=== PATIENT | female | born 1990 | race Caucasian/White ===

== ENCOUNTER 2017-10-03 02:40 | Inpatient (IN) | payer OTHER ==
[~2017-10-03] VITALS: Ht 175.3 cm; Wt 90.7 kg
[2017-10-03 02:40] VITALS: BP 140/90
--- NOTE | 2017-10-03 02:50 | NUR ---
27/F BIBA C/O SUICIDAL IDEATION, LACERATION TO BL WRISTS. NO PMH, NKA. PER EMS PT WAS AT A FRIENDS HOUSE AND ATTEMPTED SUICIDE WITH BL WRIST LACERATION IN THE TUB AND BY DRINKING BLEACH. [place] [employer] PRESENT, PLACED PT 5150 HOLD. PT IS AA&O X4, ERATIC, EXCESSIVE SPEECH BUT COOPERATIVE. FOLLOWS COMMANDS. RIGHT WRIST FULL THICKNESS LACERATION, LEFT WRIST HAS MULTIPLE LACERATIONS OF PARTIAL THICKNESS, NO ACTIVE BLEEDING NOTED AT THIS TIME. PT IS IN ER BED ALL BELONGINGS REMOVED AND GIVEN TO SECURITY, ER MD NOTIFIED OF PT STATUS.
--- NOTE | 2017-10-03 02:52 | NUR ---
PT BIB AMBULANCE TO ER BED 06
--- NOTE | 2017-10-03 02:52 | NUR ---
[place] [employer] AT BEDSIDE
[2017-10-03] MEDS ORDERED: LORazepam 2 MG/ML VIAL IM ONE (03:10)
[2017-10-03 03:11] LABS: PLATELET COUNT (AUTO) 300 K/uL (140-450)
[2017-10-03 03:14] LABS: HEMATOCRIT 48.5 % (36-48); HEMOGLOBIN 16.4 g/dL (12.0-16.0); MEAN CORPUSCULAR HEMOGLOBIN 31 pg (27-31); MEAN CORPUSCULAR HGB CONC 34 g/dL (33-37); MEAN CORPUSCULAR VOLUME 91 fL (80-94); RED BLOOD CELL COUNT(AUTO) 5.31 MIL/uL (4.20-5.40); RED CELL DISTRIBUTION WIDTH 12.2 % (11.6-13.7)
--- NOTE | 2017-10-03 03:16 | NUR ---
MOTHER WAS AT BEDSIDE. PHONE # RECEIVED. I ADVISED THE MOTHER WE WOULD UPDATE HER WITH A STATUS ONCE WE HAVE AN UPDATE. MOTHER VERBALIZED UNDERSTANDING. BLAS STEEN [phone]
[2017-10-03 03:19] LABS: WHITE BLOOD COUNT (AUTO) 15.3 K/uL (4.8-10.8)
[2017-10-03 03:20] LABS: ANION GAP 13.9 (8-16); CARBON DIOXIDE 25.7 mmol/L (21-32); CHLORIDE 101 mmol/L (98-107); CREATININE 0.8 mg/dL (0.6-1.3); GFR ARICAN-AMERICAN 112 mL/min (>90); GLUCOSE 121 mg/dL (74-106); LYMPHOCYTES % (MANUAL) 3 % (20-46); MONOCYTES % (MANUAL) 1 % (5-12); POTASSIUM 3.6 mmol/L (3.5-5.1); SODIUM SERUM 137 mmol/L (136-145); UREA NITROGEN, BLOOD 8 mg/dL (7-18)
[2017-10-03 03:26] LABS: ACETAMINOPHEN < 0.5 ug/ml (10-30); ALBUMIN 4.3 g/dL (3.4-5.0); ASPARTATE AMINOTRANSFERASE 18 U/L (15-37); SALICYLATE 4.6 mg/dL (2.8-20.0); TOTAL BILIRUBIN 0.8 mg/dL (0.0-1.0)
[2017-10-03 03:39] LABS: BARBITURATE, URINE NEG. ng/ml (NEG <=200); BENZODIAZEPINE, URINE NEG. ng/mL (NEG <=200); CANNABINOID, URINE POS. ng/mL (NEG <=50); COCAINE, URINE NEG. ng/mL (NEG <=300); OPIATE, URINE NEG. ng/mL (NEG <=2000); PHENCYCLIDINE SCREEN,URINE NEG. ng/mL (NEG <=25)
--- NOTE | 2017-10-03 04:00 | NUR ---
PT IN BED SLEEPING, WILL CONTINUE TO MONITOR.
--- NOTE | 2017-10-03 04:37 | NUR ---
POISON CONTROL CALLED TO REPORT PT'S INGESTION OF HOUSE'S BLEACH, PER POISON COMPUTER ANALYST WANG, IF PT'S DOES NOT SHOW ANY VOMITING OR MOUTH OR THROAT IRRITATION TO JUST KEEP AN CLOSE MONITORING ON PT. SOCIAL WELFARE ADMINISTRATOR TAY PEREZ. IF ANY TRAUMA TO ESOPHAGUS SUSPECTED BY ER MD, GI CONSULT MAY BE NEEDED. PT LATEST VS GIVEN TO TECH OVER THE PHONE. ER MD MADE AWARE OF POISON CONTROL RECOMENDATIONS. PRIMARY CARE NURSE NOTIFIED AT BEDSIDE.
--- NOTE | 2017-10-03 04:51 | NUR ---
PT ABLE TO TOLERATE WATER PO WITH NO COMPLICATIONS. DR. TETO HALL.
--- NOTE | 2017-10-03 05:00 | NUR ---
PT IN BED RESTING, COMFORT NEEDS MET, WILL CONTINUE TO MONITOR.
--- NOTE | 2017-10-03 06:30 | NUR ---
PT IN BED SLEEPING, EASILY AROUSABLE, WILL CONTINUE TO MONITOR.
--- NOTE | 2017-10-03 07:12 | NUR ---
report given to eulogio oneill, transfer of care at this time.
--- NOTE | 2017-10-03 07:15 | NUR ---
PT APPEARS TO BE SLEEPING COMFORTABLY IN BED; RR EVEN/UNLABORED; POSITIONED FOR COMFORT; NO POTENTIALLY HARMFUL OBJECTS IN PT'S ROOM AT THIS TIME; SITTER AT BEDSIDE; WILL CONTINUE TO MONITOR.
--- NOTE | 2017-10-03 08:10 | NUR ---
Pt resing with eyes closed in [place]; Nad; RR are even and unlabored; sucidial precautions in place; sitter by bedside
--- NOTE | 2017-10-03 08:50 | NUR ---
Pt on bsc; pt returned to [facility] without incident; will continue to [facility]; sitter by bedside; suicidial precautions
--- NOTE | 2017-10-03 09:10 | NUR ---
Pt resing with eyes closed in [place]; Nad; RR are even and unlabored; sucidial precautions in place; sitter by bedside
--- NOTE | 2017-10-03 10:09 | NUR ---
Pt resing with eyes closed in [place]; Nad; RR are even and unlabored; sucidial precautions in place; sitter by bedside
--- NOTE | 2017-10-03 11:15 | NUR ---
[place]; Nad; RR are even and unlabored; sucidial precautions in place; sitter by bedside
--- NOTE | 2017-10-03 11:39 | NUR ---
BLAS STEEN, mother of pt, by bedside.
[2017-10-03] MEDS ORDERED: ONDANSETRON 4 MG/2 ML VIAL IVP PRN (12:10)
[2017-10-03] MEDS ORDERED: HYDROcodone/APAP 5/325 MG 1 TAB TAB PO PRN (12:10)
[2017-10-03] MEDS ORDERED: ACETAMINOPHEN 325 MG TAB PO PRN (12:10)
--- NOTE | 2017-10-03 12:19 | NUR ---
Patient will be admitted to [facility]. Admited to Med Surg. Will go to room 109b. Belongings list completed. Report to Jesi MANSFIELD.
--- NOTE | 2017-10-03 12:26 | NUR ---
RECEIVED REPORT FROM ER NURSE. WILL GET ROOM READY. PT WILL GO TO ROOM 109B
--- NOTE | 2017-10-03 15:00 | NUR ---
PT SLEEPING IN BED RIGHT NOW. SITTER AT BEDSIDE NO SIGNS OF DISTRESS
[2017-10-03 16:00] VITALS: BP 107/63
[2017-10-03] MEDS ORDERED: ACET-2619 PO (16:04)
--- NOTE | 2017-10-03 18:45 | NUR ---
PT MOM AND FRIEND AT BEDSIDE. PT YELLED AT ME FOR TYPING IN ROOM. LEFT ROOM. SITTER AT BEDSIDE. ADMINISTERED NICOTINE PATCH. MOM WAS STATING PT NEEDS IT. GAVE PATCH TO PT AND SHE PLACED IT ON LEFT ARM.
[2017-10-03] MEDS: LORazepam 2 MG/ML VIAL IVP PRN (18:53)
[2017-10-03] MEDS: NICOTINE TRANSD SYS 21 MG/24 HR PATCH TD SCH (19:06)
--- NOTE | 2017-10-03 19:25 | NUR ---
ENDORSED PT TO ADMITTING OFFICER NURSE AT BEDSIDE. PT MOM AND FRIEND AT BEDSIDE. SITTER IN ROOM. PT IS IN EMOTIONAL DISTRESS BUT IN STABLE CONDITION.
--- NOTE | 2017-10-03 19:26 | NUR ---
RECEIVED REPORT FROM DAY SHIFT RN AT PT BEDSIDE FOR CONTINUITY OF CARE. PT IS A/OX4, ON ROOM AIR, PT IS AGITATED, YELLING, AND CRYING. PT HAS A NEW LEFT FOREARM IV 22G SALINE LOCKED PUT IN BY CHARGE NURSE. IV TO RIGHT AC REMOVED. PT HAS BILATERAL WRIST LACERATIONS COVERED DRY AND INTACT. SAFETY PRECAUTIONS IN PLACE. SITTER IN ROOM. UPDATED BOARD. DISCUSSED PLAN OF CARE WITH PT, PT VERBALIZED UNDERSTANDING. VITAL SIGNS WITHIN NORMAL LIMITS. PT IN STABLE CONDITION, NO SIGNS OF DISTRESS NOTED. BED IN LOW POSITION, CALL LIGHT WITHIN REACH. WILL CONTINUE TO MONITOR.
[2017-10-04] VITALS: BP 115/63
--- NOTE | 2017-10-04 00:05 | NUR ---
PT SLEEPING, EASILY AWAKEN. VITAL SIGNS WNL. SITTER AT BEDSIDE. PT IN STABLE CONDITION, NO SIGNS OF DISTRESS NOTED. BED IN LOW POSITION, CALL LIGHT WITHIN REACH. WILL CONTINUE TO MONITOR.
[2017-10-04 05:29] LABS: HEMATOCRIT 46.1 % (36-48); HEMOGLOBIN 15.4 g/dL (12.0-16.0); MEAN CORPUSCULAR HEMOGLOBIN 31 pg (27-31); MEAN CORPUSCULAR HGB CONC 33 g/dL (33-37); MEAN CORPUSCULAR VOLUME 92 fL (80-94); PLATELET COUNT (AUTO) 242 K/uL (140-450); RED BLOOD CELL COUNT(AUTO) 5.01 MIL/uL (4.20-5.40); RED CELL DISTRIBUTION WIDTH 12.3 % (11.6-13.7); WHITE BLOOD COUNT (AUTO) 9.5 K/uL (4.8-10.8)
[2017-10-04 05:59] LABS: EOSINOPHILS % (MANUAL) 2 % (0-4); LYMPHOCYTES % (MANUAL) 31 % (20-46); MONOCYTES % (MANUAL) 8 % (5-12)
--- NOTE | 2017-10-04 07:00 | NUR ---
PATIENT HAS BEEN SCREENED AND CATEGORIZED LOW NUTRITION RISK. PATIENT WILL BE SEEN WITHIN 7 DAYS OF ADMISSION. 10/10/17 ROBERTO LOPEZ MS, RDN
--- NOTE | 2017-10-04 07:20 | NUR ---
ENDORSED PT TO DAY SHIFT RN FOR CONTINUITY OF CARE. PT IN STABLE CONDITION.
--- NOTE | 2017-10-04 07:20 | NUR ---
RECEIEVED ENDORSEMENT FROM GLASS BLOWER NURSE. PATIENT IS STABLE, RESPIRATION EVEN, UNLABOR. SKIN DRY AND WARM TO THE TOUCH. CALL LIGHT WITHIN REACH. WILL CONTINUE TO MONITOR.
--- NOTE | 2017-10-04 07:51 | NUR ---
CALLED [facility] SPOKE WITH ART , STILL NO BED AVAILABLE WILL CHECK ON IT.
[2017-10-04 08:00] VITALS: BP 104/68
[2017-10-04] MEDS: NICOTINE TRANSD SYS 21 MG/24 HR PATCH TD SCH (08:05)
--- NOTE | 2017-10-04 08:10 | NUR ---
DUE MEDS GIVEN, OLD NICOTINE PATCH REMOVED BEFORE NEW ONE APPLIED, PT FLAT AFFECT BUT COOPERATIVE, NO C/O PAIN OR DISCOMFORT, DRESSINGS ON BILAT WRIST CDI, 22G PIV LFA PATENT, PT REMAINS ON 1:1 WATCH, SAFETY MEASURES IN PLACE WILL CONTINUE TO MONITOR.
[2017-10-04] MEDS: LORazepam 2 MG/ML VIAL IVP PRN (08:36)
--- NOTE | 2017-10-04 08:39 | NUR ---
PT C/O FEELING ANXIOUS AND AGITATED, PT REQUESTS MEDICATION TO CALM HER DOWN, PRN ATIVAN GIVEN AT THIS TIME, PT REMAINS ON 1:1 WATCH, WILL CONTINUE TO MONITOR.
[2017-10-04] MEDS ORDERED: ENOXAPARIN 40 MG/0.4 ML SYR SUBQ SCH (09:00)
--- NOTE | 2017-10-04 09:15 | NUR ---
Social Service Note: I faxed inquiry to [facility], phone number , fax .
--- NOTE | 2017-10-04 10:08 | NUR ---
PT RESTING QUIETLY IN NAD, RESP EVEN UNLABORED, SKIN WARM DRY COLOR WNL, PT REMAINS ON 1:1 WATCH, WILL CONTINUE TO MONITOR.
--- NOTE | 2017-10-04 11:32 | NUR ---
PT SLEEPING QUIETLY IN NAD, RESP EVEN UNLABORED, SKIN WARM DRY COLOR WNL, PT REMAINS ON 1:1 WATCH, WILL CONTINUE TO MONITOR.
--- NOTE | 2017-10-04 14:59 | NUR ---
Social Service Note: Per Art from [facility], phone number , fax , he has faxed inquiries to multiple inpatient psychiatric hospitals and he will contact nurses station once he finds placement.
[2017-10-04 16:00] VITALS: BP 104/66
--- NOTE | 2017-10-04 16:04 | NUR ---
PT SITTING UP IN BED, RESTING QUIETLY IN NAD, PT ASKED TO CALL HER MOTHER ON THE PHONE, PHONE PROVIDED, PT NOW TALKING TO MOM, PT CALM, COOPERATIVE, NO YELLING OR OUT BURSTS TODAY, DENIES SI OR HALUCINATIONS TODAY. PT REMAINS ON 1:1 WATCH, AWAITING INPT PSYCH PLACEMENT, WILL CONTINUE TO MONITOR.
--- NOTE | 2017-10-04 17:38 | NUR ---
DANYELL FROM [facility] CALLED, PT INFORMATION PROVIDED, AWAITING URINE HCG RESULT BEFORE SHE CAN GET A BED THERE, WILL CALL DANYELL AT [phone] WITH HCG RESULT.
--- NOTE | 2017-10-04 17:42 | NUR ---
PT SITTING UP IN BED TALKING WITH MOTHER CALMLY AT BEDSIDE, NO C/O PAIN OR DISCOMFORT, WILL CONTINUE TO MONITOR.
--- NOTE | 2017-10-04 17:58 | NUR ---
PT AND MOTHER ARGUING WITH RAISED VOICE, PT APPEARS UPSET, MOTHER ASKED TO STEP OUT FOR AWHILE, PT STATES "I LOVE MY MOTHER BUT SHE DOES NOT LISTEN TO ME AND MAKES ME MAD", PT'S FEELINGS VALIDATED, EMOTINAL SUPPORTED PROVIDED, OFFERED TO RESTRICT VISITATION FROM HER MOTHER BUT PT DECLINED, SHE STATES "ITS OK FOR MY MOTHER TO COME BACK BUT IF WE START ARGUING AGAIN, I WILL ASK HER TO LEAVE". PT SITTING UP EATING DINNER, PT REMAINS ON 1:1 WATCH, WILL CONTINUE TO MONITOR.
[2017-10-04 18:00] LABS: APPEARANCE,URINE CLEAR (CLEAR); BILIRUBIN,URINE NEGATIVE (NEGATIVE); BLOOD, URINE NEGATIVE (NEGATIVE); COLOR,URINE YELLOW (YELLOW); LEUKOCYTE ESTERASE ,URINE NEGATIVE (NEGATIVE); NITRITE, URINE NEGATIVE (NEGATIVE); PH,URINE 6.5 (5.0-9.0); UGLUCOSE NEGATIVE (NEGATIVE)
--- NOTE | 2017-10-04 18:15 | NUR ---
URINE RESULT CALLED TO DANYELL AT [facility], PT ROOM ASSIGNED 707 BED 2. REPORT CALLED TO PONCE MANSFIELD AT [phone], PT AND MOTHER UPDATED WITH PLAN, AWAITING TRANSPORT. Addendum: 10/04/17 at 1915 by Ella Cronin RN ACCEPTING PHYSICIAN DR GLEASON.
--- NOTE | 2017-10-04 19:00 | NUR ---
TRANSPORT HERE TO TAKE PT, PT SIGNED TRANSFER/DISCHARGE PAPERS, VERBALIZED FULL UNDERSTANDING, IV DC'D, CATH TIP INTACT, BLEEDING CONTROLLED, PT UP TO BATHROOM WITH STEADY GAIT, PT BELONGINGS RECEIVED FROM SECURITY, GIVEN TO MOTHER, REPORT GIVEN TO EMT, PT TAKEN TO [facility] ROOM [id number] IN [facility] AT THIS TIME.
--- NOTE | 2017-10-06 07:34 | NUR ---
FAXED RETRO REVIEW TO [facility] [phone] PHONE LOGAN [phone]
== END 2017-10-04 19:00 | disposition designated cancer center or children's hospital (05) | DRG 384 ==
LOC: MED 02:40 → MTU 12:13 → OBSVTOIN 14:14
PROVIDERS: ADMIT Hospitalist; ATTEND Hospitalist
PROC: 0HQDXZZ Repair Right Lower Arm Skin, External Approach (ICD-10-PCS; principal; 2017-10-03)
DX: S61.511A Laceration without foreign body of right wrist, initial encounter (principal); R45.851 Suicidal ideations; F25.0 Schizoaffective disorder, bipolar type; T54.92XA Toxic effect of unspecified corrosive substance, intentional self-harm, initial encounter; J45.909 Unspecified asthma, uncomplicated; F17.210 Nicotine dependence, cigarettes, uncomplicated; F12.90 Cannabis use, unspecified, uncomplicated; X78.9XXA Intentional self-harm by unspecified sharp object, initial encounter; Y93.89 Activity, other specified; Y92.89 Other specified places as the place of occurrence of the external cause; Y99.8 Other external cause status; Z91.048 Other nonmedicinal substance allergy status
CPT/HCPCS: 12001; 96372; 99218; 99285; G0378; 36415; 80053; 80305; 81003; 81025; 85025; 87081; 93005; G0480; G0482; J1650; J2060